=== PATIENT | female | born 1945 | race Caucasian/White ===

== ENCOUNTER 2023-09-13 09:53 | Inpatient (IN) | payer OTHER, SELFPAY ==
[2023-09-12 16:32] VITALS: BP 125/84
[2023-09-12 16:55] LABS: % Basophils 0.8 % (0-2); % Eosinophils 3.1 % (0-6); % Immature Granulocytes 0.2 % (0-0.5); % Lymphocytes 42.3 % (20.5-51.1); % Monocytes 6.5 % (1.7-9.3); % Neutrophils 47.1 % (42.2-75.2); Absolute Basophils 0.1 10^3/uL (0-0.2); Absolute Eosinophils 0.2 10^3/uL (0-0.7); Absolute Lymphocytes 2.6 10^3/uL (1.2-3.4); Absolute Monocytes 0.4 10^3/uL (0.1-0.6); Absolute Neutrophils 2.9 10^3/uL (1.4-6.5); Hematocrit 38.3 % (37.0-47.0); Hemoglobin 12.8 g/dL (12.0-16.0); Mean Corp Hgb Conc. 33.4 g/dL (33.0-37.0); Mean Corpuscular Hgb 30.7 pg (27.0-31.0); Mean Corpuscular Volume 91.8 fL (81.0-99.0); Mean Platelet Volume 11.2 fL (7.4-10.4); Nucleated Red Blood Cells % 0 %; Platelet Count 217 10^3/uL (130-400); Red Blood Cell Count 4.17 10^6/uL (4.20-5.40); Red Cell Dist. Width 14.9 % (11.5-14.5); White Blood Cell Count 6.2 10^3/uL (4.8-10.8)
[2023-09-12 17:12] LABS: INR 1.02; PT 13.4 Sec (11.4-14.6)
[2023-09-12 17:13] LABS: APTT 32.5 Sec (23.4-35.0); Blood Urea Nitrogen 42 mg/dl (7-17); Carbon Dioxide 26 mmol/L (22-30); Chloride 102 mmol/L (98-107); Glucose 109 mg/dl (70-99); Potassium 4.4 mmol/L (3.5-5.1); Sodium 135 mmol/L (135-145); eGFR 35.89
[2023-09-12 19:01] VITALS: BP 132/69
[2023-09-12 19:03] VITALS: BMI 34.0
--- NOTE | 2023-09-12 19:36 | ED.GENMED ---
History of Present Illness
General
Chief Complaint: Fall
Source: patient
Time Seen by Provider: 09/12/23 17:42
Travel History
Have you had any contact with someone who has COVID-19?: No
Do you have any symptoms of coronavirus? Fever > 100 degrees, chills, cough, shortness of breath, sore throat, loss of taste or smell, muscle aches, or headache?: No
History of Present Illness
History of Present Illness:
78-year-old female with past medical history of hypertension presenting to the emergency department for evaluation after she had an accidental trip and fall when she missed the last step in her basement. Patient states that since the fall she
noticed a large lump on the left side of her abdomen/flank which has grown in size and become more painful prompting her to come to the ER today. She denies any head injury, loss consciousness, vomiting, visual changes or any other concerns. She
denies use of anticoagulants. No other injuries sustained.
Past History
Past History
ED Past Medical History: HTN, Hypothyroidism and Other (Stress follicular lymphoma, leiomyoma of the fourth toe, sleep apnea, hemangioma with liver biopsy, breast tumor benign ovarian cysts, endometriosis.)
ED Past Surgical History: Orthopedic and Other (History of liver biopsy of the liver, left thumb joint replacement, eye surgery, left nephrectomy for renal cell cancer, thyroidectomy.)
Social History
Tobacco: Non-smoker
Alcohol: None
Drug: None
Personal:
Living: with family
Employment: Retired
Review of Systems
Review of Systems
All Other Systems: ROS reviewed and negative except as documented in HPI and ROS
Phy Exam
Physical Exam
Physical Exam:
GENERAL: Alert , in no apparent distress
EYE: clear conjunctiva b/l
HEAD: NCAT
ENT: o/p clr, mmm.
CARDIAC: Regular rate and rhythm .
LUNGS: Clear breath sounds bilaterally, no acute respiratory distress, no wheezes/rales/rhonchi
ABDOMEN: Soft, moderate to large 6 cm hematoma with overlying ecchymosis to the left mid abdomen, no r/g, no cvat
NEUROLOGICAL: Alert and oriented
SKIN: Warm and dry, skin intact.
MUSCULOSKELETAL: well perfused.
PSYCH: Normal and appropriate interaction.
Scores
Heart Failure Risk
Heart Failure Risk Score: Not Applicable
Heart Score for Chest Pain Patients
STEMI patient?: Not applicable
Withdrawal Assessment of Alcohol
Withdrawal Assessment Completed?: Not applicable
Course
Orders/Labs/Results
Orders:
Orders
09/12/23 16:36
CT Angio Abd/Pelvis w/wo IV [CT Abd/pelvis Angio W/wo Iv] Urgent
Comment:
Reason For Exam: fall, enlarging left flank hematoma
09/12/23 16:46
Type+Screen Urgent
Basic Metabolic Panel Urgent
Complete Blood Count/With Diff Urgent
PTT Urgent
Prothrombin Time Urgent
Abnormal Lab Results
09/12/23
16:46
RBC 4.17 L 10^6/uL
(4.20-5.40)
RDW 14.9 H %
(11.5-14.5)
MPV 11.2 H fL
(7.4-10.4)
BUN 42 H mg/dl
(7-17)
Creatinine 1.5 H mg/dL
(0.6-1.0)
Glucose 109 H mg/dl
(70-99)
09/12/23 16:46
09/12/23 16:46
Vital Signs
Initial and Last Documented VS:
Initial Vital Signs
Temp Pulse Resp BP Pulse Ox
98.7 F 89 16 125/84 98
09/12/23 16:32 09/12/23 16:32 09/12/23 16:32 09/12/23 16:32 09/12/23 16:32
Last Documented Vital Signs
Temp Pulse Resp BP Pulse Ox
98.7 F 89 16 132/69 97
09/12/23 16:32 09/12/23 16:32 09/12/23 16:32 09/12/23 19:01 09/12/23 19:05
MDM/Problems Addressed
Differential Diagnosis Includes:
Abdominal wall hematoma, rib fracture, visceral injury
MDM/Problems Addressed:
78-year-old female presenting emergency department for evaluation status post accidental fall down 1 step. She has a clear abdominal wall hematoma. Discussed with radiology about imaging and ultimately we decided on CT angio of the abdomen and
pelvis to evaluate for active bleeding/extravasation. Patient is otherwise hemodynamically stable and in no acute distress. Labs ordered
*Radiology
Radiology exam reviewed: radiology read reviewed
*Pulse Oximetry
Patient hypoxic: no
*Critical Care Note
Total Time (30-74mins, 75-104mins- exclusive of procedures): Not Applicable
Patient Management
Discussion with other providers: Hospitalist
Escalation/DeEscalation of care consider admission/obs:
Patient CT shows hematoma with component of active bleeding but likely from thin arterial branches of the lateral abdominal wall. We placed Aleksandar wrap around the area to compress. Patient is now requesting something for pain so ordered p.o.
Percocet. Due to the active bleeding decision was ultimately made to admit patient for hemoglobin trending and serial abdominal exams. Hospitalist team accepts for continued evaluation and treatment.
ED Attending Note
-
Portions of this chart may have been created with voice recognition software.� Occasional wrong word or��sound alike� substitutions may have occurred due to the inherent limitations of voice recognition software.
Discharge Plan
Departure
Patient Disposition: Admit
Date of Disposition: 09/12/23
Time of Disposition: 19:37
Presentation/result/management discussed w/ accepting MD/DO: Hospitalist
Discharge Problem:
Abdominal wall hematoma
Prescriptions:
No Action
levothyroxine 75 MCG tablet
75 mcg PO DAILY
lisinopril 40 MG tablet
40 mg PO DAILY
nifedipine [Nifedical XL] 30 mg Tablet Extended Release 24hr
30 mg PO DAILY
phentermine 37.5 mg Tablet
37.5 mg PO DAILY
esomeprazole magnesium 40 mg Capsule,Delayed Release(Dr/Ec)
40 mg PO DAILY
hydrochlorothiazide 25 mg Tablet
25 mg PO DAILY
doxazosin 2 mg Tablet
2 mg PO DAILY
cyclosporine 0.05 % Dropperette
1 drp BOTH EYES HS
PreserVision AREDS-2 250-90-40-1 mg Capsule
1 tab PO BID
Eye [place] Advantage/Vitamin D3
1 tab PO BID
Referrals:
Gwen Hitchcock MD [Family Provider] -
Interventions
Interventions:
*Risk Screen - Suicide Last Done: 09/12/23 16:32
*General Assessment Last Done: 09/12/23 19:03
*Neglect/Abuse Screening Last Done: 09/12/23 16:32
ED- Fall Risk Assessment Last Done: 09/12/23 19:03
*ED COVID-19 Vaccine History Last Done: 09/12/23 16:32
ED-Musculoskeletal Assessment Last Done: 09/12/23 19:03
ED- Neurological Assessment Last Done: 09/12/23 19:03
ED-Skin Assessment Last Done: 09/12/23 19:03
Discharge Date and Time
Print Language: MOHAWK
[2023-09-12] MEDS: PERCOCET 5/325 1 TABLET PO (19:41)
[2023-09-12 20:00] VITALS: BP 144/79
--- NOTE | 2023-09-12 20:19 | HPS.HSE ---
Family Physician
-
Family Physician: Gwen Hitchcock
Chief Complaint
-
S/P Fall with Left Abdominal Swelling/Hematoma
History of Present Illness
78yo F with PMH HTN/HLD, Hypothyroidism, Endometriosis, Hx Follicular Lymphoma s/p duodenal resection, Hx Renal Ca s/p Left Nephrectomy (1987), Left Left Leg Melanoma s/p resection presents to ER for left abdominal pain/swelling/bruising s/p fall at
home. She was in her basement and missed a step backing down the stairs landing on her left wrist and left abdomen. Within 30minutes noticed pain/swelling and 6/10 burning pain in her left flank. Denies hematuria. Has not yet had a BM. Not on blood
thinners/antiplatelets. No hx of easy bruising or recurrence in past. Denies fever, chills, chest pain, palps, wheezing, cough, sob, n/v/d/c, dysuria, calf or leg pain. Only new medication is phentermine started [facility] 3 months ago.
ER course: Pt presents with V.S.S. Hgb 12.8 g/dL (baseline), PLT 217, BUN/Cr 42/1.5 (0.9 10/2018). CT a/p: In the subcutaneous soft tissues of the left lateral abdominal wall, there is a mass compatible with hematoma. On postcontrast delayed images,
there is contrast accumulation suggesting a component of active bleeding. Compression bandage placed. Pt admitted for serial abdominal exams and H&H monitoring. S/P Percocet 5/325mg in ER with pt reporting improved pain.
Medical History
Past Medical History
Past Medical History: Reports Other (HTN/HLD, Hypothyroidism, Endometriosis, Hx Follicular Lymphoma s/p duodenal resection, Hx Renal Ca s/p Left Nephrectomy (1987), Left Left Leg Melanoma s/p resection )
Past Surgical History: Reports Other (Liver Biopsy, Left Thumb Joint replacement, Eye Surgery, Left Nephrectomy for Renal Ca, Thyroidectomy, Left leg Melanoma resection, Duodenal resection of follicular lymphoma)
Social History
Tobacco: Non-smoker
Alcohol: None
Drug: None
Living: Alone
Family History
Family History: Other (Mother with Breast Cancer. Father with Lung Cancer. Brother with NHL. )
Allergies / Home Medications
Allergies reflects when Allergies were last updated in [employer].
Home Medications with original date entered in [employer]
Allergy/Medication List:
Allergies
Allergy/AdvReac Type Severity Reaction Status Date / Time
morphine Allergy Pt states, Verified 10/08/18 11:53
'I
when I
received
it in
surgery.'
Home Medications
levothyroxine 75 mcg tablet 75 mcg PO DAILY 06/15/12
lisinopril 40 mg tablet 40 mg PO DAILY 06/15/13
Eye [place] Advantage/Vitamin D3 1 tab PO BID 09/12/23
cyclosporine 0.05 % eye drops in a dropperette 1 drp BOTH EYES HS 09/12/23
doxazosin 2 mg tablet 2 mg PO DAILY 09/12/23
esomeprazole magnesium 40 mg capsule,delayed release 40 mg PO DAILY 09/12/23
hydrochlorothiazide 25 mg tablet 25 mg PO DAILY 09/12/23
nifedipine 30 mg tablet,extended release 24 hr 30 mg PO DAILY 09/12/23
phentermine 37.5 mg tablet 37.5 mg PO DAILY 09/12/23
vit C 250 mg-vit E 90 mg-zinc 40 mg-copper 1 [id number] capsule (PreserVision AREDS-2) 1 tab PO BID 09/12/23
Review of Systems
-
A 12 point ROS was completed and negative except as noted: Yes
Physical Exam
Vital Signs
Vital Signs
Temp Pulse Resp BP Pulse Ox
98.7 F 89 16 132/69 99
09/12/23 16:32 09/12/23 16:32 09/12/23 16:32 09/12/23 19:01 09/12/23 19:30
Physical Exam
General: Well Developed, Well Nourished, No Apparent Distress, Comfortable and Conversant
HEENT: NormoCephalic, Moist mucous membranes, Atraumatic, PERRLA and Neck Nontender; No Neck Mass
Respiratory: Clear; No Wheezes, Rales or Rhonchi
Cardiac: S1/S2 and Regular Rhythm; No Murmur or Rub
GI: Soft, Non Distended, Normal Bowel Sounds and Other (Left abdominal/flank ecchymosis with Mild TTP. No rebound or guarding. ); No Organomegaly
Rectal: Deferred by Provider
Genito-urinary: No costovertebral tender; No Callejas
Musculoskeletal: No Clubbing, No Cyanosis and No Edema
Skin: No Rash
Neuro: Awake, Alert, AO x 3, Nonfocal/grossly intact and No Sensory Deficits
Psych: Calm
Laboratory Results
-
09/12/23 16:46
09/12/23 16:46
Laboratory Results
PT 13.4 Sec (11.4-14.6) 09/12/23 16:46
INR 1.02 09/12/23 16:46
APTT 32.5 Sec (23.4-35.0) 09/12/23 16:46
Data Reviewed
-
Diagnostic Radiology: Image Personally Visualized and interpreted
CT Scan: Image Personally Visualized and interpreted
Medical Tests (Nuc Med, Echo, EKG etc): Image Personally Visualized and interpreted
Lab Data: Labs Reviewed by me
Old Records: Reviewed
Impression/Plan
-
Left Abdominal Wall Hematoma
- CT a/p reviewed: In the subcutaneous soft tissues of the left lateral abdominal wall, there is a mass compatible with hematoma. On postcontrast delayed images, there is contrast accumulation suggesting a component of active bleeding. Status post
left nephrectomy. There is a well-defined ovoid lipoma arising within the left gluteus minimus muscle, new since examination in 2011. Round focus of sclerosis within the anterior left iliac bone, unchanged since examination 2011, reassuring that
this is a benign bone island.
- Compression bandage applied in ER
- Trend H&H for stability noting small like tomorrow could be dilutional. Consider surgical eval if any HD instability or precipitous decline in hgb.
- Not on A.C./antiplatelets. PLT 217K.
- Continue Tylenol and Prn Oxycodone for analgesia
- Follow up CPK/UA
Elevated Serum Creatine / Probable KYLEE
- BUN/Cr 42/1.5. HD stable on admission. Likely pre-renal.
- Hold home HCTZ/CHARLES-I
- Hx Left Nephrectomy (1987), Cr last 0.9 in 10/2018
- 1L NS bolus ordered. Cont NS @ 100cc/hr x 1L
- Check CPK.
- Follow up UA
Renal lesions
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 There are also cysts arising in the right kidney. No evidence for an enhancing right renal mass.
- Likely chronic. Outpatient follow up advised.
HTN/HLD - Continue doxazosin and nifedipine with hold parameters. Hold CHARLES-I and HCTZ 2/2 #2.
Hypothyroidism - Cont home synthroid
Hx Cancer
- Hx Follicular lymphoma s/p duodendal resection
- Hx Melanoma insitu s/p resection LLE
- Hx RCC - s/p left nephrectomy (1987)
GERD - PPI
Obesity - BMI 33.9. Resume phentermine on discharge
Diet: Regular
DVT Ppx: SCDs
Code Status: Full
[2023-09-12 21:00] VITALS: BP 126/80
[2023-09-12] MEDS: NSS 500 IV (21:10)
[2023-09-12 22:03] VITALS: BP 153/78
[2023-09-12 22:03] LABS: Hematocrit 32.5 % (37.0-47.0); Hemoglobin 11.2 g/dL (12.0-16.0)
[2023-09-12 22:05] VITALS: BMI 32.9
[2023-09-12] MEDS: RESTASIS 0.05% OPHTHALMIC EMULSION 1 DROPS BOTH EYES (22:11)
[2023-09-12] MEDS: NSS 1000 IV (22:11)
[2023-09-12] MEDS: ROXICODONE 5 MG PO (22:11)
[2023-09-12 22:25] LABS: Creatine Phosphokinase 160 U/L (30-135)
[2023-09-12] MEDS: MELATONIN 5 MG PO (23:10)
[2023-09-12 23:42] LABS: Urine Albumin Negative (Neg - Trace); Urine Bilirubin Negative (Negative); Urine Character Clear (Clear); Urine Color Yellow; Urine Glucose Negative (Negative); Urine Ketone Negative (Negative); Urine Leukocyte 2+ (Negative); Urine Nitrite Negative (Negative); Urine Occult Blood Trace (Negative); Urine Urobilinogen Negative (Neg - 1+)
[2023-09-13 00:03] LABS: Urine Bacteria Moderate (Negative); Urine White Cell 16-20 /HPF (0-5)
[2023-09-13] MEDS: ROXICODONE 5 MG PO ×4 (01:49→21:48)
--- NOTE | 2023-09-13 03:43 | PTCARENOTE ---
Received pt from ER at 2200. Pt ambulatory in room. AAOx3, VSS. Medicated for pain per JUL. Oriented to room, call booth and plan of care.
[2023-09-13] MEDS: SYNTHROID 75 MCG PO (04:25)
[2023-09-13 06:32] LABS: % Basophils 0.6 % (0-2); % Eosinophils 3.9 % (0-6); % Immature Granulocytes 0.4 % (0-0.5); % Lymphocytes 45.8 % (20.5-51.1); % Monocytes 7.1 % (1.7-9.3); % Neutrophils 42.2 % (42.2-75.2); Absolute Eosinophils 0.2 10^3/uL (0-0.7); Absolute Lymphocytes 2.3 10^3/uL (1.2-3.4); Absolute Monocytes 0.4 10^3/uL (0.1-0.6); Absolute Neutrophils 2.1 10^3/uL (1.4-6.5); Hematocrit 32.2 % (37.0-47.0); Hemoglobin 10.8 g/dL (12.0-16.0); Mean Corp Hgb Conc. 33.5 g/dL (33.0-37.0); Mean Corpuscular Hgb 30.8 pg (27.0-31.0); Mean Corpuscular Volume 91.7 fL (81.0-99.0); Mean Platelet Volume 11.5 fL (7.4-10.4); Nucleated Red Blood Cells % 0 %; Platelet Count 174 10^3/uL (130-400); Red Blood Cell Count 3.51 10^6/uL (4.20-5.40); White Blood Cell Count 4.9 10^3/uL (4.8-10.8)
[2023-09-13 06:57] LABS: Blood Urea Nitrogen 35 mg/dl (7-17); Calcium 9.4 mg/dl (8.4-10.2); Carbon Dioxide 28 mmol/L (22-30); Chloride 102 mmol/L (98-107); Estimated Creatinine Clearance 44 ml/min; Glucose 93 mg/dl (70-99); Potassium 3.8 mmol/L (3.5-5.1); Sodium 136 mmol/L (135-145); eGFR 42.62
[2023-09-13 07:00] VITALS: BP 127/79
[2023-09-13] MEDS: PROCARDIA XL (EXTENDED RELEASE) 30 MG PO (07:40)
[2023-09-13] MEDS: SENOKOT-S 1 TABLET PO ×2 (07:40→21:22)
[2023-09-13] MEDS: CARDURA 2 MG PO (07:43)
[2023-09-13] MEDS: OCUVITE SOFTGEL 1 CAP PO ×2 (07:44→21:22)
[2023-09-13] MEDS: PROTONIX 40 MG PO (07:44)
--- NOTE | 2023-09-13 09:56 | CM ---
Met with patient at bedside; initial assessment completed
MAY form explained and signed @ 0947
Pharmacy verified: [facility]
Patient lives alone in a [place] with basement; 1 step to enter via the back door; 12-13 steps down to the basement; railing present of basement stairs; her bathroom has a stall shower
PLOF: patient reported she is independent with ambulation, stairs, and ADLs; Drives; Retired
SNF/Rehab/Home Health utilization history: Rehab stay post bilateral knee replacement surgery @ [facility] 6 years ago
Transportation: Friend or daughter will provide ride home
Plan: discharge to Home with no needs when stable
[2023-09-13 15:00] VITALS: BP 107/60
[2023-09-13] MEDS: TYLENOL 650 MG PO (15:06)
--- NOTE | 2023-09-13 15:30 | W.PN.HOSP.TC ---
Today's Communication/Plan
-
Monitor left abdominal hematoma site for expansion
Monitor hemoglobin
Monitor creatinine.
Assessment / Plan
Assessment / Plan
Left Abdominal Wall Hematoma
- CT a/p reviewed: In the subcutaneous soft tissues of the left lateral abdominal wall, there is a mass compatible with hematoma. On postcontrast delayed images, there is contrast accumulation suggesting a component of active bleeding. Status post
left nephrectomy. There is a well-defined ovoid lipoma arising within the left gluteus minimus muscle, new since examination in 2011. Round focus of sclerosis within the anterior left iliac bone, unchanged since examination 2011, reassuring that
this is a benign bone island.
- Compression bandage applied in ER
- Trend H&H for stability noting small like tomorrow could be dilutional. Consider surgical eval if any HD instability or precipitous decline in hgb.
- Not on A.C./antiplatelets. PLT 217K.
- Continue Tylenol and Prn Oxycodone for analgesia
-Remains hemodynamically stable with no tachycardia. Monitor closely following hemoglobin.
Elevated Serum Creatine / Probable KYLEE
- BUN/Cr 42/1.5. HD stable on admission. Likely pre-renal.
- Hold home HCTZ/CHARLES-I
- Hx Left Nephrectomy (1987), Cr last 0.9 in 10/2018
- 1L NS bolus ordered. Cont NS @ 100cc/hr x 1L
-CPK within normal limits
-Urinalysis with mild elevation of RBC/WBC/bacteriuria. Otherwise asymptomatic. Will add urine culture for completeness.
Renal lesions
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 There are also cysts arising in the right kidney. No evidence for an enhancing right renal mass.
- Likely chronic. Outpatient follow up advised.
HTN/HLD - Continue doxazosin and nifedipine with hold parameters. Hold CHARLES-I and HCTZ 2/2 #2.
Hypothyroidism - Cont home synthroid
Hx Cancer
- Hx Follicular lymphoma s/p duodendal resection
- Hx Melanoma insitu s/p resection LLE
- Hx RCC - s/p left nephrectomy (1987)
GERD - PPI
Obesity - BMI 33.9. Resume phentermine on discharge
Diet: Regular
DVT Ppx: SCDs
Code Status: Full
Anticipated Discharge: 24 - 48 hours
Subjective/Interval History
-
Date of Service: September 13, 2023
Objective Data
-
Labs:
Laboratory Results
09/13/23
04:25
WBC 4.9
Hgb 10.8 L
Hct 32.2 L
Plt Count 174
Sodium 136
Potassium 3.8
Chloride 102
Carbon Dioxide 28
BUN 35 H
Creatinine 1.3 H
Glucose 93
Calcium 9.4
Vital Signs:
Vital Signs
Temp Pulse Resp BP Pulse Ox
98.1 F 78 16 107/60 97
09/13/23 15:00 09/13/23 15:00 09/13/23 15:00 09/13/23 15:00 09/13/23 15:00
Physical Exam
-
General: Well Developed and No Apparent Distress
HEENT: Normocephalic, Atraumatic and Moist Mucous Membranes
Respiratory: Clear to Auscultation
Cardiac: Regular Rhythm and S1/S2; Negative Murmur, Rub or Gallop
GI: Soft, Nontender, Nondistended and Normal Bowel Sounds; Negative Organomegaly
Rectal: Deferred by Provider
Musculoskeletal: No Clubbing, No Cyanosis and No Edema
Skin: Negative Rash
Neuro: Nonfocal/Grossly Intact
[2023-09-13] MEDS: RESTASIS 0.05% OPHTHALMIC EMULSION 1 DROPS BOTH EYES (21:22)
[2023-09-13 23:42] VITALS: BP 108/57
[2023-09-14 03:10] VITALS: BP 134/66
[2023-09-14 05:53] LABS: % Basophils 0.6 % (0-2); % Eosinophils 3.6 % (0-6); % Immature Granulocytes 0.2 % (0-0.5); % Lymphocytes 50.2 % (20.5-51.1); % Monocytes 6.1 % (1.7-9.3); % Neutrophils 39.3 % (42.2-75.2); Absolute Eosinophils 0.2 10^3/uL (0-0.7); Absolute Lymphocytes 2.4 10^3/uL (1.2-3.4); Absolute Monocytes 0.3 10^3/uL (0.1-0.6); Absolute Neutrophils 1.9 10^3/uL (1.4-6.5); Hematocrit 33.9 % (37.0-47.0); Mean Corp Hgb Conc. 32.4 g/dL (33.0-37.0); Mean Corpuscular Volume 92.4 fL (81.0-99.0); Mean Platelet Volume 11.5 fL (7.4-10.4); Nucleated Red Blood Cells % 0 %; Platelet Count 177 10^3/uL (130-400); Red Blood Cell Count 3.67 10^6/uL (4.20-5.40); White Blood Cell Count 4.7 10^3/uL (4.8-10.8)
[2023-09-14] MEDS: SYNTHROID 75 MCG PO (05:57)
[2023-09-14 06:16] LABS: Blood Urea Nitrogen 30 mg/dl (7-17); Calcium 9.7 mg/dl (8.4-10.2); Carbon Dioxide 27 mmol/L (22-30); Chloride 101 mmol/L (98-107); Estimated Creatinine Clearance 57 ml/min; Glucose 101 mg/dl (70-99); Potassium 3.9 mmol/L (3.5-5.1); Sodium 135 mmol/L (135-145); eGFR 58.39
[2023-09-14 07:00] VITALS: BP 135/84
[2023-09-14] MEDS: PROCARDIA XL (EXTENDED RELEASE) 30 MG PO (08:23)
[2023-09-14] MEDS: PROTONIX 40 MG PO (08:23)
[2023-09-14] MEDS: CARDURA 2 MG PO (08:23)
[2023-09-14] MEDS: OCUVITE SOFTGEL 1 CAP PO (08:23)
[2023-09-14 11:00] VITALS: BP 108/72
--- NOTE | 2023-09-14 12:28 | W.DS.TRANS ---
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
-
Discharge Instructions:
Discharge Diagnosis/Procedures abdominal hematoma
Diet Regular
Instructions:
Stand-Alone Forms:
Changes to Home Medications: Yes
Discharge Medications:
DC Medications w/original date entered in [employer]
levothyroxine 75 mcg tablet 75 mcg PO DAILY Thyroid 06/15/12
lisinopril 40 mg tablet 40 mg PO DAILY Blood Pressure 06/15/13
Eye [place] Advantage/Vitamin D3 1 tab PO BID Supplement 09/12/23
cyclosporine 0.05 % eye drops in a dropperette 1 drp BOTH EYES HS Eye Condition 09/12/23
doxazosin 2 mg tablet 2 mg PO DAILY Blood Pressure 09/12/23
esomeprazole magnesium 40 mg capsule,delayed release 40 mg PO DAILY Gastrointestinal Issue 09/12/23
nifedipine 30 mg tablet,extended release 24 hr 30 mg PO DAILY Blood Pressure 09/12/23
phentermine 37.5 mg tablet 37.5 mg PO DAILY Weight loss 09/12/23
vit C 250 mg-vit E 90 mg-zinc 40 mg-copper 1 [id number] capsule (PreserVision AREDS-2) 1 tab PO BID Eye Condition 09/12/23
Home Medication Changes
HCTZ stopped
Pending Results: No
--- NOTE | 2023-09-14 13:49 | CM ---
Chart reviewed and patient is for discharge today, per patient she is going on a cruise tomorrow.
Plan; Home no needs.
== END 2023-09-14 13:59 | disposition home or self-care (01) | DRG 605 ==
LOC: 4 WEST ACU 09:53
PROVIDERS: Physician Assistant Medical; ADMITTING PHYSICIAN Internal Medicine; ATTENDING PHYSICIAN Internal Medicine; EMERGENCY PHYSICIAN Emergency Medicine; FAMILY PHYSICIAN Internal Medicine
DX: S30.1XXA Contusion of abdominal wall, initial encounter (principal); N17.9 Acute kidney failure, unspecified; Q61.02 Congenital multiple renal cysts; I10 Essential (primary) hypertension; W10.8XXA Fall (on) (from) other stairs and steps, initial encounter; Y93.9 Activity, unspecified; Y92.008 Other place in unspecified non-institutional (private) residence as the place of occurrence of the external cause; E89.0 Postprocedural hypothyroidism; E66.9 Obesity, unspecified; D17.71 Benign lipomatous neoplasm of kidney; D17.9 Benign lipomatous neoplasm, unspecified; K21.9 Gastro-esophageal reflux disease without esophagitis; N20.0 Calculus of kidney; E78.5 Hyperlipidemia, unspecified; G47.30 Sleep apnea, unspecified; Z85.528 Personal history of other malignant neoplasm of kidney; Z90.5 Acquired absence of kidney; Z79.890 Hormone replacement therapy; Z85.72 Personal history of non-Hodgkin lymphomas; Z85.820 Personal history of malignant melanoma of skin; Z80.1 Family history of malignant neoplasm of trachea, bronchus and lung; Z80.3 Family history of malignant neoplasm of breast; Z80.7 Family history of other malignant neoplasms of lymphoid, hematopoietic and related tissues; Z88.5 Allergy status to narcotic agent; Z68.33 Body mass index [BMI] 33.0-33.9, adult
CPT/HCPCS: 74174; 80048; 81003; 81015; 82550; 85014; 85018; 85025; 85610; 85730; 86850; 86900; 86901; 87086; 93005; 99285; Q9967

== ENCOUNTER → 2023-11-20 08:41 | Outpatient (REF) | payer OTHER, SELFPAY | LOC: WDC 08:41 | PROVIDERS: ATTENDING PHYSICIAN Internal Medicine | DX: Z12.31 Encounter for screening mammogram for malignant neoplasm of breast (principal) | CPT/HCPCS: 77063; 77067 ==

== ENCOUNTER → 2023-11-22 09:32 | Outpatient (REF) | payer OTHER, SELFPAY | LOC: RAD 09:32 | PROVIDERS: ATTENDING PHYSICIAN Internal Medicine Endocrinology, Diabetes & Metabolism; FAMILY PHYSICIAN Internal Medicine | DX: E04.2 Nontoxic multinodular goiter (principal) | CPT/HCPCS: 76536 ==

== ENCOUNTER → 2024-01-09 13:26 | Outpatient (REF) | payer OTHER, SELFPAY ==
[2024-01-09 13:48] VITALS: BP 138/89; BP_SYST 108
[2024-01-09 14:45] VITALS: BP 138/89
== END ==
LOC: RADI 13:26
PROVIDERS: ATTENDING PHYSICIAN Internal Medicine Endocrinology, Diabetes & Metabolism; FAMILY PHYSICIAN Internal Medicine
DX: E04.2 Nontoxic multinodular goiter (principal)
CPT/HCPCS: 88173; 10005; 10006

== ENCOUNTER → 2024-09-15 11:14 | Outpatient (REF) | payer OTHER, SELFPAY | LOC: DHSLP 11:14 | PROVIDERS: ATTENDING PHYSICIAN Hospitalist; FAMILY PHYSICIAN Internal Medicine Critical Care Medicine | DX: G47.33 Obstructive sleep apnea (adult) (pediatric) (principal); R09.02 Hypoxemia | CPT/HCPCS: 95810 ==

== ENCOUNTER → 2024-11-13 11:15 | Outpatient (REF) | payer OTHER, SELFPAY | LOC: HWRAD 11:15 | PROVIDERS: ATTENDING PHYSICIAN Internal Medicine Endocrinology, Diabetes & Metabolism; FAMILY PHYSICIAN Internal Medicine | DX: E04.2 Nontoxic multinodular goiter (principal) | CPT/HCPCS: 76536 ==

== ENCOUNTER → 2024-11-21 10:25 | Outpatient (REF) | payer OTHER, SELFPAY | LOC: WDC 10:25 | PROVIDERS: ATTENDING PHYSICIAN Hospitalist | DX: Z12.31 Encounter for screening mammogram for malignant neoplasm of breast (principal) | CPT/HCPCS: 77063; 77067 ==